=== PATIENT | male | born 1965 | race Caucasian/White ===

== ENCOUNTER 2017-07-17 17:50 | Emergency (ER) | payer OTHER ==
[~2017-07-17] VITALS: Ht 175.3 cm; Wt 104.3 kg
[~2017-07-17 17:50] MED LIST: B12 1MG PE1000 MCG/M IM; CILOXAN0.3% OPH; CO-Q-10 200 MG-1 SGL PO; HYDROCODONE BIT PO; L-CARNITINE500 MG PO; LORAZEPAM1 MG PO; OXYCODONE AND A1 TA2 PO; SOLU MEDRO IV
--- NOTE | 2017-07-17 17:59 | ED UPPER/LOWER EXTREMITY COMPL ---
History of Present Illness General Chief Complaint: Lower Extremity Injury Stated Complaint: "CRUSHED MY LEFT LEG WITH A LOG" Source: patient Exam Limitations: no limitations Vital Signs & Intake/Output Vital Signs & Intake/Output Vital Signs Date Time Temp Pulse Resp B/P B/P Pulse O2 O2 Flow FiO2 Mean Ox Delivery Rate 07/17 2013 98.3 98 18 158/70 96 Room Air 07/17 1801 98.3 106 18 162/88 96 Room Air ED Intake and Output 07/18 0000 07/17 1200 Intake Total 0 Output Total Balance 0 Intake, Oral 0 Patient 230 lb Weight Weight Estimated Measurement Method Allergies Coded Allergies: NO KNOWN ALLERGIES (11/28/13) Reconcile Medications Ciprofloxacin Hydrochloride (Ciloxan) 0.3% OIN 2 GTT OPH Q6H CONJUNCTIVITIS Coenzyme Q10/Vitamin E (Co-Q-10 200 MG-1 Iu) 1 SGL SGL 1 SGL PO DAILY SUPPLEMENT (Reported) Cyanocobalamin (Cyanocobalamin Injection) 1,000 MCG/ML VIAL 1 ML IM ONCE A WEEK SUPPLEMENT (Reported) HYDROCODONE/ACETAMINOPHEN (Hydrocodon-Acetaminoph 7.5-325) 7.5 MG-325 MG TABLET 1 TAB PO TID PRN PAIN (Reported) Levocarnitine (L-Carnitine) 500 MG TAB 2 TAB PO DAILY SUPPLEMENT (Reported) Lorazepam 1 MG TABLET 1 TAB PO BID PRN SLEEP (Reported) Methylprednisolone. (Solu-Medrol 1,000 MG Vial) (Unknown Strength) VIAL ( Unknown Dose) IV Q30D CHEMO (Reported) OXYCODONE HCL/ACETAMINOPHEN (Oxycodone-Acetaminophen 5-325) 5 MG-325 MG TABLET 1 TAB PO DAILY PRN PAIN (Reported) Triage Nurses Notes Reviewed? yes Onset: Abrupt Duration: hour(s): Timing: single episode today Severity: mild, moderate Pain/Injury Location: Left: Leg. No Modifying Factors: none HPI: 51-year-old male comes into the emergency room for further evaluation of left leg pain. Patient reports that his at home and a log fell on his left lower leg just below his knee. He's had some pain and swelling since then. Comes in for further evaluation. Denies any trauma anywhere else on his body. Denies any numbness or tingling. (Helder LEARY,Hemanth) Past History Travel History Traveled to [place] past 21 day No Medical History Any Pertinent Medical History? none Surgical History Surgical History: non-contributory Psychosocial History What is your primary language Slovak Family History Hx Contributory? No (Hemanth Beard) Review of Systems Review of Systems Constitutional: Reports: no symptoms. EENTM: Reports: no symptoms. Respiratory: Reports: no symptoms. Cardiovascular: Reports: no symptoms. Gastrointestinal/Abdominal: Reports: no symptoms. Genitourinary: Reports: no symptoms. Musculoskeletal: Reports: see HPI. Skin: Reports: no symptoms. Neurological/Psychological: Reports: no symptoms. Hematologic/Endocrine: Reports: no symptoms. Immunological: Reports: no symptoms. All Other Systems: Reviewed and Negative (Hemanth Beard) Physical Exam Physical Exam General Appearance: well developed/nourished, mild distress Head: atraumatic Eyes: Bilateral: normal appearance. Ears, Nose, Throat: normal ENT inspection, hearing grossly normal Neck: normal inspection Cardiovascular/Respiratory: no respiratory distress Back: normal inspection Leg Left: normal range of motion, soft tissue tenderness, no bony tenderness of proximal fibula or tibia, full range of motion of knee, no tenderness of medial or lateral malleolar region, full range of motion of ankle Foot Left: patient has no acute tenderness of left ankle, full range of motion, Neurologic/Tendon: normal sensation, normal motor functions, normal tendon functions, responds to pain, no evidence tendon injury, no pulse deficit Skin: intact, normal color, warm/dry (Hemanth Beard) Progress Differential Diagnosis: contusion, dislocation, fracture, septic arthritis, sprain, tendon injury Plan of Care: Orders Procedure Date/time Status XRY-ANKLE 3 OR MORE VIEWS L 07/18 1855 Active Diagnostic Imaging: Viewed by Me: Radiology Read. Discussed w/RAD: Radiology Read. Radiology Impression: PATIENT: ROE WADSWORTH PRESENT AGE: 51 PATIENT ACCOUNT NO: [id number] : 67 LOCATION: [facility] ORDERING PHYSICIAN: Hemanth LEARY SERVICE DATE: 07/17/17 EXAM TYPE : RAD - XRY-ANKLE 3 OR MORE VIEWS L EXAMINATION: XR ANKLE, LEFT CLINICAL INFORMATION: Fracture COMPARISON: None TECHNIQUE: AP, lateral, and mortise views of the left ankle. FINDINGS: There is a displaced complex distal fibular diametaphyseal fracture. There is a butterfly fragment medially and laterally. The talar dome appears smooth and intact. No definite distal tibial fracture demonstrated. Slight hypertrophic change at the tip of the medial malleolus. There is surrounding soft tissue swelling IMPRESSION: Complex mildly displaced distal fibular fracture. No definite disruption of the mortise DICTATED BY: Steve Martinez MD DATE/TIME DICTATED:07/17/171932 MANAGEMENT DEPARTMENT CHAIR:KRISTY DATE/TIME TRANSCRIBED:07/17/171932 CONFIDENTIAL, DO NOT COPY WITHOUT APPROPRIATE AUTHORIZATION. <Electronically signed in Other Vendor System> SIGNED BY: Steve Martinez MD 07/17/171936, PATIENT: ROE WADSWORTH PRESENT AGE: 51 PATIENT ACCOUNT NO: [id number] : 67 LOCATION: [facility] ORDERING PHYSICIAN: Hemanth LEARY SERVICE DATE: 07/17/171756 EXAM TYPE: RAD - XRY-KNEE COMPLETE LEFT; [id number], LEFT EXAMINATIONS: RIGHT KNEE 3 VIEWS AND RIGHT TIB/FIB 2 VIEWS CLINICAL INFORMATION: Pain following trauma. COMPARISON: None. TECHNIQUE: AP, lateral, oblique views of the right knee were obtained. AP and lateral views of the right tib-fib are provided. FINDINGS: There is a comminuted fracture to the distal left fibula. There is mild narrowing to the medial knee compartment. There is a small knee joint effusion. There is mild soft tissue swelling about the medial and lateral malleoli. IMPRESSION: Comminuted distal left fibular fracture. Small knee joint effusion. Mild degenerative change. DICTATED BY: Miguel Gan MD DATE/TIME DICTATED:07/17/171830 MANAGEMENT DEPARTMENT CHAIR:KRISTY DATE/TIME TRANSCRIBED:1830 CONFIDENTIAL, DO NOT COPY WITHOUT APPROPRIATE AUTHORIZATION. < Electronically signed in Other Vendor System> SIGNED BY: Miguel Gan MD 07/17/171837 Comments: 07/17/2017 8:19:58 PM patient did not have any pain over the distal fibular region however fractures appreciated. Patient was splinted. Nonweightbearing. Follow with orthopedic doctor. He does not report any significant pain. (Helder LEARY,Hemanth) Departure Departure Disposition: HOME OR SELF CARE Condition: Stable Clinical Impression Primary Impression: Fracture of distal end of left fibula Referrals: Efe SALES,Uriel Caro MD,Kolby Newman (PCP/Family) Additional Instructions: Taking ibuprofen for pain. Ice. Rest. Return if any concerns worsening symptoms. Follow-up with orthopedic doctor as needed. Nonweightbearing. Please go over all results of today's visit with your primary care doctor. Contact your primary care doctor to let them know you were here in the emergency room. There may be nonspecific findings which may not be related to your visit today here in the emergency room but may require further evaluation and chronic monitoring by your primary care doctor. If you had a laceration today the chance of foreign body always remains. You should follow-up with your primary care doctor for recheck in 3-5 days for a wound check. If you had an x-ray done there is a chance that a fracture could have been missed on initial read and you should follow-up with your primary care doctor for repeat x-rays if symptoms persist. If your blood pressure was elevated here in the emergency room please have rechecked by [facility] primary care doctor within the next 48. If you were prescribed a narcotic here in the emergency room or any type of controlled substances you're not allowed to drive while taking this medication or operate any type of heavy machinery. Narcotics can make you feel lightheaded dizziness nausea and can cause constipation. You may need to picker a stool softener. Thank you for choosing [facility] emergency room. Please return to the emergency room immediately if you have any other concerns worsening of symptoms. Departure Forms: Customer Survey General Discharge Information (Hemanth Beard) PA/SOFTWARE DEVELOPER CONSULTANT Co-Sign Statement Statement: ED Attending supervision documentation- [] I saw and evaluated the patient. I have also reviewed all the pertinent lab results and diagnostic results. I agree with the findings and the plan of care as documented in the PA's/SOFTWARE DEVELOPER CONSULTANT's documentation. [X] I have reviewed the ED Record and agree with the PA's/SOFTWARE DEVELOPER CONSULTANT's documentation. [] Additions or exceptions (if any) to the PAs/SOFTWARE DEVELOPER CONSULTANT's note and plan are summarized below: [] (Ashlee SALES,Zachariah Hamlin) Procedures Splinting Location: left ankle Manual Alignment Performed: No Hand-Made Type: orthoglass Splint: posterior splint Splint Applied By: splint applied by me Pre-Proc Neuro Vasc Exam: normal Post-Proc Neuro Vasc Exam: normal (Hemanth Beard)
--- NOTE | 2017-07-17 18:38 | RADIOLOGY REPORT ---
EXAMINATIONS: RIGHT KNEE 3 VIEWS AND RIGHT TIB/FIB 2 VIEWS CLINICAL INFORMATION: Pain following trauma. COMPARISON: None. TECHNIQUE: AP, lateral, oblique views of the right knee were obtained. AP and lateral views of the right tib-fib are provided. FINDINGS: There is a comminuted fracture to the distal left fibula. There is mild narrowing to the medial knee compartment. There is a small knee joint effusion. There is mild soft tissue swelling about the medial and lateral malleoli. IMPRESSION: Comminuted distal left fibular fracture. Small knee joint effusion. Mild degenerative change.
--- NOTE | 2017-07-17 19:37 | RADIOLOGY REPORT ---
EXAMINATION: XR ANKLE, LEFT CLINICAL INFORMATION: Fracture COMPARISON: None TECHNIQUE: AP, lateral, and mortise views of the left ankle. FINDINGS: There is a displaced complex distal fibular diametaphyseal fracture. There is a butterfly fragment medially and laterally. The talar dome appears smooth and intact. No definite distal tibial fracture demonstrated. Slight hypertrophic change at the tip of the medial malleolus. There is surrounding soft tissue swelling IMPRESSION: Complex mildly displaced distal fibular fracture. No definite disruption of the mortise
[2017-07-17 20:14] VITALS: BP 158/70
== END 2017-07-17 20:17 ==
LOC: ERH 17:50
DX: S82.252A Displaced comminuted fracture of shaft of left tibia, initial encounter for closed fracture (principal); W20.8XXA Other cause of strike by thrown, projected or falling object, initial encounter; Y93.9 Activity, unspecified; Y92.009 Unspecified place in unspecified non-institutional (private) residence as the place of occurrence of the external cause
CPT/HCPCS: 73562-LT; 73590-LT; 73610-LT

== ENCOUNTER 2017-07-20 09:21 | Emergency (ER) | payer OTHER ==
[~2017-07-20] VITALS: Ht 175.3 cm; Wt 104.3 kg
--- NOTE | 2017-07-20 10:17 | ED GENERAL ADULT ---
History of Present Illness General Chief Complaint: Foot or Ankle Injury Stated Complaint: FRACTURED L ANKLE. HERE 07/17 NOW SWOLLEN/HOT Source: patient, family Exam Limitations: no limitations Vital Signs & Intake/Output Vital Signs & Intake/Output Vital Signs Date Time Temp Pulse Resp B/P B/P Pulse O2 O2 Flow FiO2 Mean Ox Delivery Rate 07/20 1119 98.3 69 18 130/73 97 Room Air 07/20 0925 96.9 88 18 154/102 98 Room Air Allergies Coded Allergies: NO KNOWN ALLERGIES (11/28/13) Reconcile Medications Ciprofloxacin Hydrochloride (Ciloxan) 0.3% OIN 2 GTT OPH Q6H CONJUNCTIVITIS Coenzyme Q10/Vitamin E (Co-Q-10 200 MG-1 Iu) 1 SGL SGL 1 SGL PO DAILY SUPPLEMENT (Reported) Cyanocobalamin (Cyanocobalamin Injection) 1,000 MCG/ML VIAL 1 ML IM ONCE A WEEK SUPPLEMENT (Reported) HYDROCODONE/ACETAMINOPHEN (Hydrocodon-Acetaminoph 7.5-325) 7.5 MG-325 MG TABLET 1 TAB PO TID PRN PAIN (Reported) Levocarnitine (L-Carnitine) 500 MG TAB 2 TAB PO DAILY SUPPLEMENT (Reported) Lorazepam 1 MG TABLET 1 TAB PO BID PRN SLEEP (Reported) Methylprednisolone. (Solu-Medrol 1,000 MG Vial) (Unknown Strength) VIAL ( Unknown Dose) IV Q30D CHEMO (Reported) OXYCODONE HCL/ACETAMINOPHEN (Oxycodone-Acetaminophen 5-325) 5 MG-325 MG TABLET 1 TAB PO DAILY PRN PAIN (Reported) Triage Note: 51 Y/O MALE C/O WORSENING SWELLING TO L LOWER EXTREMITY; WAS DIAGNOSED WITH FX L ANKLE BUT STATES SWELLING APPEARS WORSE AND EXTENDS UP INTO THIGH. DENIES PAIN IN ANKLE. C/O PAIN IN L KNEE. SWELLING NOTED ABOVE SITE OF SPLINT. HPI: Patient is 51-year-old male PMH of MS (dx in 1999, last exacerbation 6 years ago , Solu-Medrol more than one year ago) presented to the ED with cc of increased swelling and pain of L leg. Patient visited ED in 3 days ago after a log fell on his leg, he was diagnosed to have complex fracture of the fibula based on xray, splint was placed and was discharged on NWB status with recommendations to follow with orthopedic doctor. He made an appointment with Dr. Richo for coming . For the last 24 hours he started to have increased swelling, discomfort, associated with feeling of warmth, he came to hospital based on previous recommendations. He reported mild numbness of right leg (baseline due to MS) however denied any change in sensation, weakness, extreme pain. Review of system is negative except as noted above, no chest pain, no palpitation, no shortness of breathing. Patient quit his smoking, reported daily drinking of 2-3 beers, no alcohol related complications. (Ant Savage MD,[place] Anglin) Triage Nurses Notes Reviewed? yes (Tl Rodriguez MD) Past History Travel History Traveled to [place] past 21 day No Medical History Neurological: multiple sclerosis EENT: NONE Cardiovascular: NONE Respiratory: NONE Gastrointestinal: NONE Hepatic: NONE Renal: NONE Musculoskeletal: NONE Psychiatric: NONE Endocrine: NONE Blood Disorders: NONE Cancer(s): NONE Surgical History Surgical History: non-contributory Psychosocial History What is your primary language Chinese Tobacco Use: Quit >30 days ago (India May MD) Medical History Any Pertinent Medical History? see below for history Family History Hx Contributory? No (Tl Rodriguez MD) Review of Systems Review of Systems Constitutional: Reports: see HPI. (India May MD) Review of Systems EENTM: Reports: no symptoms. Respiratory: Reports: no symptoms. Cardiovascular: Reports: no symptoms. GI: Reports: no symptoms. Genitourinary: Reports: no symptoms. Musculoskeletal: Reports: see HPI, joint pain, joint swelling. Skin: Reports: no symptoms. Neurological/Psychological: Reports: no symptoms. Hematologic/Endocrine: Reports: no symptoms. Immunologic/Allergic: Reports: no symptoms. All Other Systems: Reviewed and Negative (Tl Rodriguez MD) Physical Exam Physical Exam General Appearance: well developed/nourished, no apparent distress, alert, awake , comfortable Head: atraumatic, normal appearance Neck: normal inspection, supple Respiratory: normal breath sounds, chest non-tender, no respiratory distress, lungs clear Cardiovascular: regular rate/rhythm Extremities: swelling of L leg. Erythema.bruising of L heel, motion limited due to pain in ankle, can move fingers, warmth, Pulse in dorsalis pedis present Neurologic/Psych: awake, alert, oriented x 3 Skin: as noted above Core Measures ACS in differential dx? No CVA/TIA Diagnosis: No Sepsis Present: No Sepsis Focused Exam Completed? No (Ant Savage MD,Idnia Anglin) Physical Exam Eyes: Bilateral: normal appearance, PERRL, EOMI. Ears, Nose, Throat: normal pharynx, normal ENT inspection, hearing grossly normal Peripheral Pulses: 4+ carotid (R), 4+ carotid (L) Gastrointestinal: normal bowel sounds, soft, non-tender, no organomegaly Back: normal inspection, normal range of motion Reflexes: 2+: bicep (R), bicep (L). Lymphatic: no anterior cervical ani (Tl Rodriguez MD) Progress Differential Diagnoses I considered the following diagnoses in my evaluation of the patient: [DVT] Differential diagnosis, DVT, cellulitis, swelling due to tight splint, less likely compartment syndrome considering presentation symptoms Plan of Care: CBC BEP, evalution for infection, cellulitis, last solumedrom more than 1 y ago Doppler US, rule out DVT monitor symptoms, physical exam, 5p for compartment syndrom leg elevation Consider EKG NPO till stable and no need for surgery Initial ED EKG: none (Ant Savage MD,[place] Anglin) Differential Diagnoses I considered the following diagnoses in my evaluation of the patient: Diagnostic Imaging: Viewed by Me: Ultrasound. Discussed w/RAD: Ultrasound. Radiology Impression: No evidence of deep venous thrombosis involving the left lower extremity. (Tl Rodriguez MD) Departure Departure Condition: Stable Departure Forms: Customer Survey General Discharge Information (Ant Savage MD,[place] Anglin) Departure Time of Disposition: 1331 Disposition: HOME OR SELF CARE Clinical Impression Primary Impression: Closed fibular fracture Referrals: Adamaris SALES,Km Caro MD,Kolby Newman (PCP/Family) Resident Co-Sign Statement Statement: ED Attending supervision documentation- x I saw and evaluated the patient. I have also reviewed all the pertinent lab results and diagnostic results. I agree with the findings and the plan of care as documented in the Resident's documentation. [] I have reviewed the ED Record and agree with the Resident's documentation. [] Additions or exceptions (if any) to the Resident's note and plan are summarized below: [] (Tl Rodriguez MD) Procedures Splinting Location: L leg Manual Alignment Performed: No Pre-Made Type: velcro Splint: posterior walking Splint Applied By: splint applied by other Pre-Proc Neuro Vasc Exam: normal Post-Proc Neuro Vasc Exam: normal (Tl Rodriguez MD) Critical Care Note Critical Care Note Critical Care Time: non-applicable (Tl Rodriguez MD)
--- NOTE | 2017-07-20 10:18 | ED GENERAL ADULT ---
History of Present Illness General Chief Complaint: Foot or Ankle Injury Stated Complaint: FRACTURED L ANKLE. HERE 07/17 NOW SWOLLEN/HOT Vital Signs & Intake/Output Vital Signs & Intake/Output Vital Signs Date Time Temp Pulse Resp B/P B/P Pulse O2 O2 Flow FiO2 Mean Ox Delivery Rate 07/20 0925 96.9 88 18 154/102 98 Room Air Allergies Coded Allergies: NO KNOWN ALLERGIES (11/28/13) Reconcile Medications Ciprofloxacin Hydrochloride (Ciloxan) 0.3% OIN 2 GTT OPH Q6H CONJUNCTIVITIS Coenzyme Q10/Vitamin E (Co-Q-10 200 MG-1 Iu) 1 SGL SGL 1 SGL PO DAILY SUPPLEMENT (Reported) Cyanocobalamin (Cyanocobalamin Injection) 1,000 MCG/ML VIAL 1 ML IM ONCE A WEEK SUPPLEMENT (Reported) HYDROCODONE/ACETAMINOPHEN (Hydrocodon-Acetaminoph 7.5-325) 7.5 MG-325 MG TABLET 1 TAB PO TID PRN PAIN (Reported) Levocarnitine (L-Carnitine) 500 MG TAB 2 TAB PO DAILY SUPPLEMENT (Reported) Lorazepam 1 MG TABLET 1 TAB PO BID PRN SLEEP (Reported) Methylprednisolone. (Solu-Medrol 1,000 MG Vial) (Unknown Strength) VIAL ( Unknown Dose) IV Q30D CHEMO (Reported) OXYCODONE HCL/ACETAMINOPHEN (Oxycodone-Acetaminophen 5-325) 5 MG-325 MG TABLET 1 TAB PO DAILY PRN PAIN (Reported) Triage Note: 51 Y/O MALE C/O WORSENING SWELLING TO L LOWER EXTREMITY; WAS DIAGNOSED WITH FX L ANKLE BUT STATES SWELLING APPEARS WORSE AND EXTENDS UP INTO THIGH. DENIES PAIN IN ANKLE. C/O PAIN IN L KNEE. SWELLING NOTED ABOVE SITE OF SPLINT. Past History Travel History Traveled to [place] past 21 day No Medical History Neurological: multiple sclerosis EENT: NONE Cardiovascular: NONE Respiratory: NONE Gastrointestinal: NONE Hepatic: NONE Renal: NONE Musculoskeletal: NONE Psychiatric: NONE Endocrine: NONE Blood Disorders: NONE Cancer(s): NONE Surgical History Surgical History: non-contributory Psychosocial History What is your primary language Burundian Tobacco Use: Quit >30 days ago Departure Departure Condition: Stable Referrals: Vania SALES,Kolby Newman (PCP/Family) Departure Forms: Customer Survey General Discharge Information
[2017-07-20 11:09] LABS: ABSOLUTE BASOPHIL COUNT 0 /CUMM (0.0-0.2); ABSOLUTE EOSINOPHIL COUNT 0.2 /CUMM (0.0-0.7); ABSOLUTE GRANULOCYTE CT 6.5 /CUMM (1.4-6.5); ABSOLUTE LYMPH COUNT 1.7 /CUMM (1.2-3.4); ABSOLUTE MONOCYTE COUNT 0.5 /CUMM (0.10-0.60); BASOPHIL % 0.2 % (0.0-2.0); GRANULOCYTE % 72.7 % (42.2-75.2); HEMATOCRIT 44.2 % (42-52); MEAN CORPUSCULAR HGB 29.1 PG (27.0-31.0); MEAN CORPUSCULAR HGB CONC 33.4 G/DL (33.0-37.0); MEAN CORPUSCULAR VOLUME 87.1 FL (80.0-94.0); MEAN PLATELET VOLUME 9.7 FL (7.4-10.4); PLATELET COUNT 201 /CUMM (130-400); RBC DISTRIBUTION WIDTH 14.1 % (11.5-14.5); RED BLOOD CELL CT 5.07 /CUMM (4.70-6.10); WHITE BLOOD CELL COUNT 8.9 /CUMM (4.8-10.8)
[2017-07-20 11:19] VITALS: BP 130/73
--- NOTE | 2017-07-20 13:19 | ULTRASOUND REPORT ---
EXAMINATION: US TRIPLEX LOWER EXTREMITY, LEFT CLINICAL INFORMATION: 51-year-old male presented with increasing left leg swelling, status post splint for foot fracture. Suspected DVT COMPARISON: None TECHNIQUE: Color-flow triplex imaging with spectral analysis and compression Doppler were performed on the lower extremity. FINDINGS: Respiratory variation, normal compression and augmented flow are noted throughout the lower extremity. The visualized common femoral vein, superficial femoral vein, profunda femoral vein, popliteal vein and midcalf peroneal and posterior tibial venous segments show no evidence of deep venous thrombosis. There is no Michelle's cyst. IMPRESSION: No evidence of deep venous thrombosis involving the left lower extremity.
== END 2017-07-20 14:03 ==
LOC: ERH 09:21
PROVIDERS: Radiology Vascular & Interventional Radiology
DX: M79.89 Other specified soft tissue disorders (principal)
CPT/HCPCS: 82436